=== PATIENT | male | born 1995 | race Caucasian/White ===

== ENCOUNTER 2019-08-21 14:01 | Day surgery (SDC) | payer BC ==
[~2019-08-21] VITALS: Ht 180.3 cm; Wt 75.5 kg
[2019-08-21 14:22] VITALS: BP 116/74
[2019-08-21] MEDS ORDERED: LACTATED RINGERS 1,000 ML IV SCH (14:22)
[2019-08-21] MEDS ORDERED: NO MEDICATIONS (14:48)
[2019-08-21] MEDS ORDERED: BUPIVACAINE/PF 0.5% ONE (16:36)
[2019-08-21] MEDS ORDERED: EPINEPHRINE 1 MG/ML, 1ML ONE (16:36)
[2019-08-21] MEDS ORDERED: FENTANYL PF 250 MCG/5ML ONE (16:40)
[2019-08-21] MEDS ORDERED: MIDAZOLAM 1 MG/ML, 2ML ONE (16:40)
[2019-08-21] MEDS ORDERED: PROPOFOL 10 MG/ML, 20ML ONE (16:46)
[2019-08-21] MEDS ORDERED: CEFAZOLIN 1,000 MG ONE (16:46)
[2019-08-21] MEDS ORDERED: OXYcodone 5 MG/5 ML ORAL.SOL UDC ONE (17:59)
[2019-08-21] MEDS ORDERED: FENTANYL PF 100 MCG/2ML ONE (17:59)
[2019-08-21] MEDS ORDERED: HYDROmorphone 2 MG/ML, 1ML IVPush PRN (18:00)
[2019-08-21] MEDS ORDERED: MEPERIDINE/PF 25MG/ML,1ML IVPush PRN (18:00)
[2019-08-21] MEDS ORDERED: ONDANSETRON 2MG/ML, 2ML IV PRN (18:00)
[2019-08-21] MEDS ORDERED: ACETAMINOPHEN 325 MG TABLET PO PRN (18:00)
[2019-08-21] MEDS: FENTANYL PF 100 MCG/2ML IV PRN ×2 (18:00→18:17)
[2019-08-21] MEDS ORDERED: OXYcodone 5 MG/5 ML ORAL.SOL UDC PO PRN (18:00)
[2019-08-21] MEDS ORDERED: LORazepam 2 MG/ML, 1ML IVPush PRN (18:00)
[2019-08-21] MEDS ORDERED: KETOROLAC 30 MG/1 ML IV PRN (18:00)
== END 2019-08-21 19:26 | disposition home or self-care (01) ==
LOC: OR 14:01
PROVIDERS: ATTEND Orthopaedic Surgery
DX: S42.022A Displaced fracture of shaft of left clavicle, initial encounter for closed fracture (principal); Z88.0 Allergy status to penicillin; X58.XXXA Exposure to other specified factors, initial encounter; Y93.89 Activity, other specified; Y92.89 Other specified places as the place of occurrence of the external cause; Y99.8 Other external cause status
CPT/HCPCS: 23515; 73000; C1713; J0171; J0690; J2250; J2704; J3010; J7120; 76000